=== PATIENT | female | born 2000 | race African-American/Black ===

== ENCOUNTER 2024-01-19 23:46 | Emergency (ER) | payer OTHER, SELFPAY ==
[2024-01-19 23:49] VITALS: BP 143/101
[2024-01-19 23:51] VITALS: BP 143/101
[2024-01-19 23:56] LABS: Glucose - Point of Care 150 mg/dl (70-99)
[2024-01-20] VITALS: BP 123/91
[2024-01-20 00:02] VITALS: BP 123/91
--- NOTE | 2024-01-20 00:07 | ED.GENMED ---
History of Present Illness
General
Chief Complaint: Alcohol Problem
Source: patient and other (Nursing staff)
Exam Limitations: none
Time Seen by Provider: 01/19/24 23:53
Travel History
Have you had any contact with someone who has COVID-19?: Unable to Answer
Do you have any symptoms of coronavirus? Fever > 100 degrees, chills, cough, shortness of breath, sore throat, loss of taste or smell, muscle aches, or headache?: Unable to Answer
History of Present Illness
History of Present Illness:
This is a 23 year old female that is brought in by ambulance intoxicated. Told by EMS that they received a call from someone at the [facility]. States that they saw the patient fall down and called 911. When EMS got there there was no one around.
Patient is intoxicated and has no complaints. Denies fever, chills, chest pain, SOB, abd pain, nausea, vomiting, diarrhea, headache, dizziness, urinary burning.
Past History
Past History
ED Past Medical History: Psychiatric (Bipolar, Anxiety)
ED Past Surgical History: None
Social History
Tobacco: Smoker
Alcohol: Occasional (Beer or Tequila)
Drug: Marijuana and Other (Ecstasy)
Personal: Single
Living: homeless
Employment: Not employed
Family History
Family History: Other
Review of Systems
Review of Systems
All Other Systems: ROS reviewed and negative except as documented in HPI and ROS
Constitutional: Reports no symptoms; Denies fever or chills
EENT: Reports no symptoms
Respiratory: Reports no symptoms; Denies cough or trouble breathing
Cardiac: Reports no symptoms; Denies chest pain
ABD/GI: Reports no symptoms; Denies abdominal pain, nausea, vomiting or diarrhea
: Reports no symptoms; Denies dysuria, frequency or urgency
Musculoskeletal: Reports no symptoms
Skin: Reports no symptoms
Neurological: Reports no symptoms; Denies dizzy or headache
Psychiatric: Reports no symptoms
Phy Exam
General Physical Exam
General Presentation: no apparent distress
General age: appears stated age
General Skin: warm and dry
General Habitus: normal
General Mental: appears intoxicated
General Hydration: appears well hydrated
ENT Exam
ENT Exam: TM's normal, pharynx normal, neck supple and other (Small abrasion noted on the lower lip)
Eye Exam
Eye Exam: EOMI
Cardiovascular Exam
Cardiovascular Exam: regular rate/rhythm, no edema, no murmur and normal peripheral pulses
Pulmonary Exam
Pulmonary Exam: lungs clear, no respiratory distress, no rales, chest non tender, no crackles, no rhonchi, no wheezing and no cough
Gastrointestinal Exam
Gastrointestinal Exam: normal bowel sounds, non tender, soft, no organomegaly, no pulsatile mass and non distended
Musculoskeletal Exam
Musculoskeletal Exam: full ROM and no edema
Skin Exam
Skin Exam: normal color, warm/dry, no rash, no petechia and other (Small abrasion on the left index finger)
Psychiatric Exam
Psychiatric Exam: other (Intoxicated, Laughing )
Scores
Withdrawal Assessment of Alcohol
Withdrawal Assessment Completed?: Not applicable
Course
Orders/Labs/Results
Orders:
Orders
01/20/24 00:07
0.9% Sodium Chloride 1000 ml [Nss] 1,000 ml IV BOLUS
Test Result ONCE
01/20/24 00:22
Alcohol Urgent
Complete Blood Count/With Diff Urgent
Comprehensive Metabolic Panel Urgent
HCG, Serum Qualitative Screen Urgent
Abnormal Lab Results
01/19/24 01/20/24
23:55 00:22
RBC 4.15 L 10^6/uL
(4.20-5.40)
Hct 36.4 L %
(37.0-47.0)
MCH 31.6 H pg
(27.0-31.0)
Abs Immat Gran (auto) 0.1 H 10^3/uL
(0-0.05)
Immature Gran % 0.9 H %
(0-0.5)
Chloride 109 H mmol/L
(98-107)
POC Glucose 150 H mg/dl
(70-99)
01/20/24 00:22
01/20/24 00:22
Chloride slightly elevated. HCG negative. Alcohol 212
Vital Signs
Initial and Last Documented VS:
Initial Vital Signs
BP
143/101
01/19/24 23:49
Last Documented Vital Signs
Temp Pulse Resp BP Pulse Ox
97.5 F 106 19 105/61 100
01/19/24 23:51 01/20/24 04:45 01/20/24 04:45 01/20/24 03:00 01/20/24 00:30
MDM/Problems Addressed
Differential Diagnosis Includes:
Intoxication,
MDM/Problems Addressed:
This is a 23 year old female that is brought in by ambulance with intoxication. Bystanders at [facility] saw patient fall and called 911. By the time EMS got there they were gone. Patient has no complaints.
Will get labs and give IV fluids. Attempted to call brother but no one answers.
[facility] spoke with patient and she is on [facility] do not admit list. Will be unable to find placement.
Chronic conditions affecting care:
Alcohol abuse
Acute Exacerbation and/or Progression of Chronic Illness:
Alcohol abuse
*Pulse Oximetry
Patient hypoxic: no
*EKG
Interpreted by ED Provider?: NA
Rate: EKG- N/A
*[employer] Interpretation
Rate: tachycardiac
Heart Rate: 106
Rhythm: sinus tachycardia
*Critical Care Note
Total Time (30-74mins, 75-104mins- exclusive of procedures): Not Applicable
ED Attending Note
-
Portions of this chart may have been created with voice recognition software.� Occasional wrong word or��sound alike� substitutions may have occurred due to the inherent limitations of voice recognition software.
Discharge Plan
Departure
Patient Disposition: Home (Routine Discharge)
Patient with high blood pressure during this ER visit?: Yes
Condition: Good
Covid-19: Not Applicable
Discharge Problem:
Alcohol intoxication
Instructions: Alcohol Use Disorder (DC), BLOOD PRESSURE
Prescriptions:
No Action
No Current Medications
0
Referrals:
NONE,* [Family Provider] -
Activity Restrictions/Additional Instructions:
As discussed, please follow up with the family doctor as needed. You need to stop drinking. IF YOU HAVE ANY OTHER CONCERNS PLEASE RETURN TO THE EMERGENCY ROOM .
Interventions
Interventions:
*Risk Screen - Suicide Last Done: 01/19/24 23:51
*General Assessment Last Done: 01/19/24 23:51
*Neglect/Abuse Screening Last Done: 01/19/24 23:51
*Nursing Disposition Last Done: 01/20/24 06:21
ED- Neurological Assessment Last Done: 01/20/24 00:02
ED-Psychological Assessment Last Done: 01/20/24 00:02
Discharge Date and Time
Discharge Date/Time: 01/20/24 06:22
[2024-01-20] MEDS: NSS 1000 IV (00:23)
[2024-01-20 00:35] LABS: % Basophils 0.7 % (0-2); % Eosinophils 0.9 % (0-6); % Immature Granulocytes 0.9 % (0-0.5); % Monocytes 4.6 % (1.7-9.3); % Neutrophils 63.9 % (42.2-75.2); Absolute Basophils 0.1 10^3/uL (0-0.2); Absolute Eosinophils 0.1 10^3/uL (0-0.7); Absolute Immature Granulocytes 0.1 10^3/uL (0-0.05); Absolute Monocytes 0.3 10^3/uL (0.1-0.6); Absolute Neutrophils 4.4 10^3/uL (1.4-6.5); Hematocrit 36.4 % (37.0-47.0); Hemoglobin 13.1 g/dL (12.0-16.0); Mean Corpuscular Hgb 31.6 pg (27.0-31.0); Mean Corpuscular Volume 87.7 fL (81.0-99.0); Mean Platelet Volume 9.3 fL (7.4-10.4); Nucleated Red Blood Cells % 0 %; Platelet Count 268 10^3/uL (130-400); Red Blood Cell Count 4.15 10^6/uL (4.20-5.40); Red Cell Dist. Width 13.1 % (11.5-14.5); White Blood Cell Count 6.9 10^3/uL (4.8-10.8)
[2024-01-20 00:39] LABS: HCG, Serum Qualitative Screen Negative
[2024-01-20 00:43] LABS: ALT (SGPT) 24 U/L (0-35); AST (SGOT) 36 U/L (14-36); Albumin 4.7 g/dl (3.5-5.0); Alcohol 212 mg/dl; Alkaline Phosphatase 73 U/L (38-126); Blood Urea Nitrogen 9 mg/dl (7-17); Calcium 9.1 mg/dl (8.4-10.2); Carbon Dioxide 23 mmol/L (22-30); Chloride 109 mmol/L (98-107); Glucose 91 mg/dl (70-99); Sodium 142 mmol/L (135-145); Total Bilirubin 0.4 mg/dl (0.2-1.3); Total Protein 7.5 g/dl (6.3-8.2); eGFR > 60.00
[2024-01-20 01:00] VITALS: BP 105/70
[2024-01-20 02:00] VITALS: BP 92/44
[2024-01-20 03:00] VITALS: BP 105/61
--- NOTE | 2024-01-20 04:09 | DOWNTIME ---
There was a [employer] Client [employer] Liaison Downtime on 01/20/2024 from 0111 to 01/20/2024 at 0405. Downtime documentation of patient's care, including medication administrations, has been reconciled in the electronic record per guidelines. Refer to the
patient's paper chart under the miscellaneous tab to see printed paper medication records and downtime forms.
== END 2024-01-20 06:22 | disposition home or self-care (01) ==
LOC: EMR 23:46
PROVIDERS: Clinical Nurse Specialist Family Health; EMERGENCY PHYSICIAN Emergency Medicine
DX: F10.129 Alcohol abuse with intoxication, unspecified (principal); S60.411A Abrasion of left index finger, initial encounter; S00.511A Abrasion of lip, initial encounter; W19.XXXA Unspecified fall, initial encounter; R03.0 Elevated blood-pressure reading, without diagnosis of hypertension; F31.9 Bipolar disorder, unspecified; F41.9 Anxiety disorder, unspecified; F17.200 Nicotine dependence, unspecified, uncomplicated
CPT/HCPCS: 99284; 96360; 80053; 82077; 82962; 84703; 85025

== ENCOUNTER 2024-12-11 17:28 | Emergency (ER) | payer OTHER, SELFPAY ==
[2024-12-11 17:31] VITALS: BP 112/75
[2024-12-11 18:27] VITALS: BP 136/71; BMI 23.5
--- NOTE | 2024-12-11 18:51 | EDRN ---
urine specimen provided by the pt and this RN sent the urine to the lab, this RN called crisis and crisis will come to the pts bedside to assess the pt
[2024-12-11 18:59] LABS: HCG, Urine Qualitative Screen Negative
[2024-12-11 19:05] LABS: Amphetamines Negative (Negative); Barbiturates Negative (Negative); Benzodiazepines Negative (Negative); Buprenorphine Negative (Negative); Cocaine Negative (Negative); Marijuana Negative (Negative); Methadone Negative (Negative); Methamphetamines Negative (Negative); Opiates Negative (Negative); Phencyclidine Negative (Negative); Tricyclic Antidepressants Negative (Negative)
--- NOTE | 2024-12-11 19:40 | ED.GENMED ---
History of Present Illness
General
Chief Complaint: Psychiatric Problem
Source: patient
Exam Limitations: none
Time Seen by Provider: 12/11/24 17:55
Nursing documentation reviewed up to this point in time: agreed with
History of Present Illness
History of Present Illness:
Patient presents to ED requesting assistance with continued use of alcohol. Denies suicidal or homicidal ideation. Denies use of any other illicit medications. Denies recent illness. Patient has had successful inpatient treatment previously.
Denies depression. Denies recent change in medication or diet. Patient's last alcohol intake was earlier today.
Past History
Past History
ED Past Medical History: Psychiatric (Bipolar, Anxiety)
ED Past Surgical History: None
Social History
Tobacco: Smoker
Alcohol: Occasional (Beer or Tequila)
Drug: Marijuana and Other (Ecstasy)
Personal: Single
Living: homeless
Employment: Not employed
Family History
Family History: Other
Review of Systems
Review of Systems
Allergies reviewed?: Yes
All Other Systems: ROS reviewed and negative except as documented in HPI and ROS
Constitutional: Reports no symptoms; Denies fever
EENT: Reports no symptoms
Respiratory: Reports no symptoms
Cardiac: Reports no symptoms
ABD/GI: Reports no symptoms; Denies abdominal pain, nausea, vomiting or diarrhea
Musculoskeletal: Reports no symptoms
Skin: Reports no symptoms
Neurological: Reports no symptoms
Phy Exam
Physical Exam
Physical Exam:
Physical Exam
General: no apparent distress, not acutely ill. afebrile
Head: nc/at. eomi
Neck: supple. normal range of motion.
Heart: s1/s2 regular rate and rhythm, no murmur. equal radial pulses.
Lungs: no acute respiratory distress. clear bilaterally
Abdomen: normal bowel sounds. not tender.
Neuro: alert and oriented x 3. no focal neurological deficits
Skin: no rash
Psychiatric: well kept. interactive and cooperative
Extremities: no edema. no calf tenderness.
Course
Orders/Labs/Results
Orders:
Orders
12/11/24 18:06
Crisis Consult Urgent
Reason for Consult: depression/alcohol abuse
12/11/24 18:07
Test Result ONCE
12/11/24 18:49
, Urine Qualitative Screen [HCG, Urine Qualitative Screen] Urgent
Date Specimen was Collected: 12/11/24
Time Specimen was Collected: 18:16
Urine Drug Abuse Screen Urgent
Date Specimen was Collected: 12/11/24
Time Specimen was Collected: 18:16
Vital Signs
Initial and Last Documented VS:
Initial Vital Signs
Temp Pulse Resp BP Pulse Ox
98.1 F 75 18 112/75 99
12/11/24 17:31 12/11/24 17:31 12/11/24 17:31 12/11/24 17:31 12/11/24 17:31
Last Documented Vital Signs
Temp Pulse Resp BP Pulse Ox
100.3 F 80 20 101/81 100
12/12/24 06:07 12/12/24 06:07 12/11/24 18:27 12/12/24 06:07 12/12/24 06:07
MDM/Problems Addressed
MDM/Problems Addressed:
Awaiting evaluation by TAMIR
Pt interviewed by Tone from [facility] - will attempt to find rehab facility for the patient.
*Critical Care Note
Total Time (30-74mins, 75-104mins- exclusive of procedures): Not Applicable
ED Attending Note
-
Portions of this chart may have been created with voice recognition software.� Occasional wrong word or��sound alike� substitutions may have occurred due to the inherent limitations of voice recognition software.
Discharge Plan
Departure
Patient Disposition: Acute Rehab Facility
Date of Disposition: 12/11/24
Time of Disposition: 22:46
Discharge Problem:
Alcohol dependence
Prescriptions:
No Action
No Current Medications
0
Referrals:
NONE,* [Family Provider] -
Interventions
Interventions:
*Risk Screen - Suicide Last Done: 12/11/24 17:31
*General Assessment Last Done: 12/11/24 17:31
*Neglect/Abuse Screening Last Done: 12/11/24 17:31
ED- Fall Risk Assessment Last Done: 12/11/24 18:27
*ED COVID-19 Vaccine History Last Done: 12/11/24 18:27
*Nursing Disposition Last Done: 12/12/24 08:53
ED-Psychological Assessment Last Done: 12/11/24 18:27
Discharge Date and Time
Discharge Date/Time: 12/12/24 08:54
Print Language: STATELESS
[2024-12-12 06:07] VITALS: BP 101/81
== END 2024-12-12 08:54 ==
LOC: EMR 17:28
PROVIDERS: EMERGENCY PHYSICIAN Emergency Medicine
DX: F10.20 Alcohol dependence, uncomplicated (principal); F17.200 Nicotine dependence, unspecified, uncomplicated
CPT/HCPCS: 99283; 80306; 81025